=== PATIENT | female | born 1990 | race Caucasian/White ===

== ENCOUNTER 2018-05-29 11:00 | Day surgery (SDC) | payer OTHER ==
[2018-05-29] VITALS (24 sets, daily range): BP systolic 102–136; BP diastolic 49–88; PULSE 67–92; RESP 14–25; Ht 157.5 cm; Wt 58.9 kg
[~2018-05-29] VITALS: Ht 157.5 cm; Wt 58.9 kg
[~2018-05-29 11:00] MED LIST: EPINEPHrine 1 MG INJ ONE; HYDR-4011 PO; IBUP-1542 PO; MIDAZOLAM 1 MG/ML 2 ML INJ ONE; PROPOFOL 20 ML ONE
[2018-05-29] MEDS ORDERED: DEXAMETHASONE 4 MG/ML 5 ML INJ ONE ×2 (11:11→13:10)
[2018-05-29] MEDS ORDERED: ONDANSETRON 4 MG INJ ONE ×2 (11:11→13:10)
[2018-05-29] MEDS ORDERED: LACTATED RINGER'S 1,000 ML IV* SCH (12:00)
[2018-05-29] MEDS ORDERED: ROCURONIUM 50 MG INJ ONE (12:35)
--- NOTE | 2018-05-29 12:47 | PREAC ---
Date/Time of Note Date/Time of Note DATE: 05/29/18 TIME: 12:45 Anesthesia Eval and Record Evaluation Time Pre-Procedure Interview DATE: 05/29/18 TIME: 12:45 Age 27 Sex female NPO: 8 hrs Preoperative diagnosis Dislodged IUD Planned procedure Hysteroscopy and D&C Past Medical History Past Medical History: Includes : : (2), Para: (0), Other ( X2) Surgery & Anesthesia Issues No known issue Meds Anticoagulation: No Beta Gilberto within 24 hr: No Reason Beta Gilberto not given: Pt. not on B-Gilberto Discontinued Scripts Ibuprofen* (Motrin*) 600 Mg Tab, 600 MG PO Q6, #20 TAB Prov:EDUARDO MCCAIN PA-C 01/05/16 Hydrocodone/Acetaminophen ([place] 5-325 Tablet) 1 Each Tablet, 1 TAB PO Q6H PRN for PAIN, #10 TAB Prov:EDUARDO MCCAIN PA-C 01/05/16 Current Medications Lactated Ringer's 1,000 ml @ 125 mls/hr Q8H IV* ; Start 05/29/18 at 12:00; Stop 05/29/18 at 23:00 Meds reviewed: Yes Allergies Coded Allergies: No Known Allergies (Unverified Allergy, Unknown, 05/29/18) Allergies Reviewed: Yes Labs/Studies Labs Reviewed: Reviewed by anesthesiologist test: Negative Studies: ECG (n/a), CXR (n/a) Pre-procedure Exam Last vitals Vital Signs Date Temp Pulse Resp B/P (MAP) Pulse Ox O2 O2 Flow FiO2 Time Delivery Rate 05/29/18 97.9 92 16 130/82 98 Room Air 11:48 (98) Airway: Adequate mouth opening, Adequate thyromental dist Mallampati: Mallampati II Teeth: Normal Lung: Normal Heart: Normal ASA Physical Status ASA physical status: 2 Emergency: None Planned Anesthetic General/MAC: LMA Planned Pain Management Parenteral pain med Pre-operative Attestations Prior to commencing anesthesia and surgery, the patient was re-evaluated, there was verification of: *The patient's identity *The results of appropriate recent lab work and preoperative vital signs *The above evaluation not changing prior to induction *Anesthetic plan, risk benefits, alternative and complications discussed with patient/family; questions answered; patient/family understands, accepts and wishes to proceed. LAILA ESPINAL MD May 29, 2018 12:47
[2018-05-29] MEDS ORDERED: FENTAnyl 50 MCG/ML VIAL ONE (12:49)
[2018-05-29] MEDS ORDERED: MIDAZOLAM 1 MG/ML 2 ML INJ ONE (12:49)
[2018-05-29] MEDS ORDERED: CEFAZOLIN 1 GM INJ ONE (12:49)
[2018-05-29] MEDS ORDERED: PROPOFOL 20 ML ONE (12:49)
--- NOTE | 2018-05-29 12:53 | HPN ---
Date/Time of Note Date/Time of Note DATE: 05/29/18 TIME: 12:53 Interval H&P Admission Note Pt. seen H&P reviewed: No system changes PRUDENCE LAROSE MD May 29, 2018 12:53
[2018-05-29] MEDS ORDERED: GLYCOPYRROLATE 0.4 MG INJ ONE (12:59)
[2018-05-29] MEDS ORDERED: NEOSTIGMINE 3 MG/3 ML SYRINGE ONE (12:59)
[2018-05-29] MEDS ORDERED: ONDANSETRON 4 MG INJ IV PRN (13:00)
[2018-05-29] MEDS ORDERED: FENTAnyl 50 MCG/ML VIAL IV PRN ×3 (13:00)
[2018-05-29] MEDS ORDERED: EPHEDrine SULFATE 50 MG/5 ML SYG IV PRN (13:00)
[2018-05-29] MEDS ORDERED: OXYCODONE/ACETAMINOPHEN (5/325) TAB PO PRN (13:00)
[2018-05-29] MEDS ORDERED: DIPHENHYDRAMINE 50 MG INJ IV PRN (13:00)
[2018-05-29] MEDS ORDERED: HYDROmorphONE 1 MG/5 ML IV SYRINGE IV PRN ×3 (13:00)
[2018-05-29] MEDS ORDERED: METOCLOPRAMIDE 10 MG INJ IV PRN (13:00)
[2018-05-29] MEDS ORDERED: MEPERIDINE 25 MG INJ IV PRN (13:00)
[2018-05-29] MEDS ORDERED: KETOROLAC 30 MG INJ ONE (13:10)
[2018-05-29] MEDS ORDERED: METOCLOPRAMIDE 10 MG INJ ONE (13:10)
--- NOTE | 2018-05-29 13:58 | PAC ---
Date/Time of Note Date/Time of Note DATE: 05/29/18 TIME: 13:57 Post-Anesthesia Notes Post-Anesthesia Note Last documented vital signs Vital Signs Date Temp Pulse Resp B/P (MAP) Pulse Ox O2 O2 Flow FiO2 Time Delivery Rate 05/29/18 99.8 92 16 130/82 98 Room Air 14:04 (98) Activity: WNL Respiratory function: WNL Cardiovascular function: WNL Mental status: Baseline Pain reasonably controlled: Yes Hydration appropriate: Yes Nausea/Vomiting absent: Yes LAILA ESPINAL MD May 29, 2018 13:58
--- NOTE | 2018-05-29 14:05 | SIPON ---
Date/Time of Note Date/Time of Note DATE: 05/29/18 TIME: 14:03 Operative Report Preoperative Diagnosis dislodged IUD Postoperative Diagnosis same as above Operation/Procedure Performed hysteroscopy IUD removal] D&C Surgeon see signature line fitter's assistant Kuldip Ricardo Anesthesia: general Estimated blood loss: minimal Transfusion Required none Specimen IUD uterine curettings Grafts/Implants none Complications none PRUDENCE LAROSE MD May 29, 2018 14:05
--- NOTE | 2018-05-29 14:06 | PD.PPDC ---
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
--- NOTE | 2018-05-30 04:45 | OPR ---
DATE OF OPERATION: 05/29/2018 PREOPERATIVE DIAGNOSIS: Dislodged IUD. POSTOPERATIVE DIAGNOSIS: Dislodged IUD. OPERATION PERFORMED: Hysteroscopy, IUD removal, and D and C. SURGEON: Rich Ponce MD CASTING CHIPPER: Ricardo Lombardi. ANESTHESIA: General. ANESTHESIOLOGIST: Shawn Reardon MD ESTIMATED BLOOD LOSS: Minimal. DESCRIPTION OF PROCEDURE: Under proper induction of general anesthesia, the patient was placed in do rsal lithotomy position. Perineal area and vagina wall was prepped and draped in usual aseptic farrukh r. On inspection, external genitalia revealed no gross abnormality. Bimanual examination, uterus wa s normal size and consistency, retroflexed and retroverted. Weighted speculum was introduced, cervix was identified with some difficulty due to the position. Anterior lip of the cervix was grasped wit h a single-tooth tenaculum and the os was identified. Cavity was sounded, which was 8 cm in depth an d cervix dilated up to 7, and hysteroscope was introduced after the usual preparation done. Upon ent ering the endocervical canal, there was a string visible and further string visible and the hys teroscope was advanced and the IUD was located and then a grasper was introduced, but because of the nose was not tied enough, the leaking fluid amount was too much to be deal with. So, the grasper was out and the inflow was blocked and tried to grasp with polyp forceps which was removed. After remov al of the IUD, the uterine cavity was curetted in all directions with obtaining small amount, which w as sent to pathology. The procedure completed. All the instruments were removed. The patient withs tood the procedure and was sent to the recovery room in stable condition. Dictated By: RICH BISHOP/NAZANIN Conf#: [id number] DID#: [id number]
== END 2018-05-29 17:00 | disposition home or self-care (01) ==
LOC: SDS 11:00
PROVIDERS: ATTEND Obstetrics & Gynecology
DX: T83.32XA Displacement of intrauterine contraceptive device, initial encounter (principal); X58.XXXA Exposure to other specified factors, initial encounter; Y93.89 Activity, other specified; Y92.89 Other specified places as the place of occurrence of the external cause; Y99.8 Other external cause status
CPT/HCPCS: 58562; 84703; J0171; J0690; J1100; J1885; J2250; J2405; J2710; J2765; J3010; Z7512; Z7610